=== PATIENT | female | born 1980 | race Two or more races ===

== ENCOUNTER 2025-06-15 03:15 | Emergency (ER) | payer MEDICAID, OTHER ==
[~2025-06-15] VITALS: Ht 160 cm; Wt 64.5 kg
[2025-06-15 04:49] VITALS: TEMP 98.1
--- NOTE | 2025-06-15 05:00 | DVH ---
EXAM: CT HEAD WITHOUT CONTRAST HISTORY: hi bp lue numb COMPARISON: None TECHNIQUE: Noncontrast axial CT images of the head were performed. Sagittal and coronal reformatted i mages were obtained. This CT exam was performed using 1 or more of the following dose reduction techn iques: Automated exposure control, adjustment of the mA and/or kv according to patient size, or the u se of iterative reconstruction techniques. Radiation Dose: CTDI volume is 52.78 mGy. Dose-length product is 933.05 mGy*cm FINDINGS: No intracranial hemorrhage, mass, midline shift, hydrocephalus, or evidence of acute large vessel inf arct. The sella is empty. There is frothy material in the left ethmoid air cells posteriorly. The catrachita ateral mastoid air cells and middle ear spaces are clear. No cranial fracture or scalp edema. There i s right frontal scalp scarring. IMPRESSION: 1. No acute intracranial process. 2. Empty sella incidentally noted. 3. Mild left ethmoid sinus disease.
[2025-06-15 05:04] LABS: Hematocrit 43.9 % (36.0-46.0); Hemoglobin 15.4 g/dL (12.2-16.2); Mean Corpuscular Hemoglobin 31.9 pg (28.0-32.0); Mean Corpuscular Volume 91.0 fL (80.0-100.0); Nucleated Red Blood Cells % 0.1 %
--- NOTE | 2025-06-15 05:14 | ED.PDOC ---
History of Present Illness HPI Comments 34-year-old female with a history of hypertension and thyroid disease brought in by private car complaining of elevated blood pressure, lightheadedness/dizziness and headache for the past 2-3 days. Patient admits to not regularly taking her enalapril and clonidine, however states she took them today. She denies any chest pain, shortness of breath, vision changes, syncope or focal weakness. Chief Complaint: High Blood Pressure Time Seen by MD: 05:13 Reviewed Notes: Nurses Notes Information Source: Patient Mode of Arrival: Ambulatory Severity: Moderate Timing: Days Past Medical History PAST MEDICAL HISTORY: HTN, Thyroid Surgical History: Denies all surgeries GAMING DEPARTMENT HEAD History: Denies all GAMING DEPARTMENT HEAD Hx Family History Family History: Reviewed,noncontributory to illness Social History Smoker: Non-Smoker Alcohol: Denies ETOH Use Drugs: Denies Drug Use Lives In: Home Constitutional: denies: chills, diaphoresis, fatigue, fever, malaise, sweats, weakness, others EENTM: denies: blurred vision, double vision, ear bleeding, ear discharge, ear drainage, ear pain, ear ringing, eye pain, eye redness, hearing loss, mouth pain, mouth swelling, nasal discharge, nose bleeding, nose congestion, nose pain, photophobia, tearing, throat pain, throat swelling, voice changes, others Respiratory: denies: cough, hemoptysis, orthopnea, SOB at rest, shortness of breath, SOB with excertion, stridor, wheezing, others Cardiovascular: denies: chest pain, dizzy spells, diaphoresis, Dyspnea on exertion, edema, irregular heart beat, left arm pain, lightheadedness, palpitations, PND, syncope, others Gastrointestinal: denies: abdomen distended, abdominal pain, blood streaked bowels, constipated, diarrhea, dysphagia, difficulty swallowing, hematemesis, melena, nausea, poor appetite, poor fluid intake, rectal bleeding, rectal pain, vomiting, others Genitourinary: denies: abnormal vagina bleeding, burning, dyspareunia, dysuria, flank pain, frequency, hematuria, incontinence, pain, , vagina dischar ge, urgency, others Neurological: reports: dizziness; denies: fainting, headache, left sided numbness, left sided weakness, numbness, paresthesia, pre-existing deficit, right sided numbness, right sided weakness, seizure, speech problems, tingling, tremors, weakness, others Musculoskeletal: denies: back pain, gout, joint pain, joint swelling, muscle pain, muscle stiffness, neck pain, others Integumetry: denies: bruises, change in color, change in hair/nails, dryness, laceration, lesions, lumps, rash, wounds, others Allergic/Immunocompromised: denies: Difficulty Healing, Frequent Infections, Hives, Itching, others Hematologic/Lymphatic: denies: anemia, blood clots, easy bleeding, easy bruising, swollen glands, others Endocrine: denies: excessive hunger, excessive sweating, excessive thirst, excessive urination, flushing, intolerance to cold, intolerance to heat, unexplained weight gain, unexplained weight loss, others Psychiatric: denies: anxiety, bipolar disorder, depression, hopeless, panic disorder, schizophrenia, sleepless, suicidal, others All Other Systems: Reviewed and Negative (Comprehensive systems review obtained and negative except for what is stated in the HPI.) Physical Exam General Appearance: No Apparent Distress HEENT: Other (Pupils and face symmetric. Moist mucous membranes.) Neck: Full Range of Motion, Normal Inspection Respiratory: Lungs Clear, No Accessory Muscle Use, No Respiratory Distress, Normal Breath Sounds Cardiovascular: No Edema, No JVD, Regular Rate/Rhythm Breast Exam: Deferred Gastrointestinal: Non Tender, Soft Genitalia: Deferred Pelvic: Deferred Rectal: Deferred Extremities: Normal inspection, Normal range of motion, Non-tender, No pedal edema Neurologic: Alert (Oriented x4), Normal Affect, Normal Mood, Other (Ambulatory) Cerebellar Function: NOT DONE Reflexes: NOT DONE Skin: Dry, Normal Color, Warm Lymphatic: NOT DONE Was a procedure done? Was a procedure done?: No Differential Dx Considerations may include: CVA, TIA, intracranial hemorrhage, Hypertensive urgency/emergency, CHF, renal failure, among others X-Ray, Labs, Meds, VS Vital Signs Date Time Temp Pulse Resp B/P (MAP) Pulse Ox O2 Delivery O2 Flow Rate FiO2 06/15/25 04:49 73 17 100 Room Air 06/15/25 04:49 98.1 73 17 179/112 (134) 100 98.1 06/15/25 04:47 179/112 06/15/25 03:16 98.0 101 20 156/101 96 98.0 Lab Test 06/15/25 04:59 Range/Units White Blood Count 5.3 4.4-10.8 10^3/uL Red Blood Count 4.82 4.0-5.20 10^6/uL Hemoglobin 15.4 12.2-16.2 g/dL Hematocrit 43.9 36.0-46.0 % Mean Corpuscular Volume 91.0 80.0-100.0 fL Mean Corpuscular Hemoglobin 31.9 28.0-32.0 pg Mean Corpuscular Hemoglobin Concent 35.0 32.0-36.0 g/dL Red Cell Distribution Width 12.9 11.8-14.3 % Platelet Count 259 140-450 10^3/uL Mean Platelet Volume 7.5 6.9-10.8 fL Neutrophils (%) (Auto) 72.6 37.0-80.0 % Lymphocytes (%) (Auto) 19.0 10.0-50.0 % Monocytes (%) (Auto) 5.9 0.0-12.0 % Eosinophils (%) (Auto) 1.7 0.0-7.0 % Basophils (%) (Auto) 0.8 0.0-2.0 % Neutrophils # (Auto) 3.8 1.6-8.6 10 ^3/uL Lymphocytes # (Auto) 1.0 0.4-5.4 10 ^3/uL Monocytes # (Auto) 0.3 0-1.3 10 ^3/uL Eosinophils # (Auto) 0.1 0-0.8 10 ^3/uL Basophils # (Auto) 0 0-0.2 10 ^3/uL Nucleated Red Blood Cells 0.1 % Sodium Level 142 136-145 mmol/L Potassium Level 4.3 3.5-5.1 mmol/L Chloride Level 107 98-107 mmol/L Carbon Dioxide Level 23 20-31 mmol/L Anion Gap 12 5-15 Blood Urea Nitrogen 11 9-23 mg/dL Creatinine 0.86 0.550-1.02 mg/dL Glomerular Filtration Rate Calc 85 >90 mL/min BUN/Creatinine Ratio 12.8 10.0-20.0 Serum Glucose 128 H 74-106 mg/dL Calcium Level 9.3 8.7-10.4 mg/dL Troponin I High Sensitivity < 3 L </=34 ng/L B-Type Natriuretic Peptide 17.16 0-100 pg/mL Current Medications Medications (Trade) Dose Ordered Sig/Juancarlos Route Start Time Stop Time Status Last Admin Hydralazine HCl (Apresoline Tablet) 10 mg ONCE ONCE PO 06/15/25 04:30 06/15/25 04:31 DC 06/15/25 04:47 EXAM: CT HEAD WITHOUT CONTRAST HISTORY: hi bp lue numb COMPARISON: None TECHNIQUE: Noncontrast axial CT images of the head were performed. Sagittal and coronal reformatted images were obtained. This CT exam was performed using 1 or more of the following dose reduction techniques: Automated exposure control, a djustment of the mA and/or kv according to patient size, or the use of iterative reconstruction techniques. Radiation Dose: CTDI volume is 52.78 mGy. Dose-length product is 933.05 mGy*cm FINDINGS: No intracranial hemorrhage, mass, midline shift, hydrocephalus, or evidence of acute large vessel infarct. The sella is empty. There is frothy material in the left ethmoid air cells posteriorly. The bilateral mastoid air cells and middle ear spaces are clear. No cranial fracture or scalp edema. There is right frontal scalp scarring. IMPRESSION: 1. No acute intracranial process. 2. Empty sella incidentally noted. 3. Mild left ethmoid sinus disease. : XY CHEST PORTABLE HISTORY: hi bp COMPARISON: None TECHNIQUE: Portable AP view of the chest was performed. FINDINGS: No pneumothorax, consolidative infiltrates, or pulmonary edema. The heart is not enlarged. IMPRESSION: No acute intrathoracic process. X-Ray, Labs, Meds, VS Comment 44-year-old female with a history of hypertension and thyroid disease complaining of elevated blood pressure, dizziness and headache Vitals remarkable for heart rate 101, blood pressure 179/112 Exam unremarkable Rhythm strip independently interpreted by me: Sinus tach, rate 101, no ectopy. CT head IMPRESSION: 1. No acute intracranial process. 2. Empty sella incidentally noted. 3. Mild left ethmoid sinus disease. Chest x-ray unremarkable CBC, basic metabolic panel, BNP and troponin unremarkable Patient treated with the following in the ED: Hydralazine 10 mg p.o. On re-evaluation, blood pressure is improving, vitals are stable. Patient is neurologically intact. Hospitalization was considered, however patient had rapid improvement of symptoms with treatment in the ED, and I no longer feel hospitalization is necessary. Patient now appears stable for discharge with close outpatient follow-up with her primary physician. Time of 1ST Reevaluation: 05:54 Reevaluation 1ST: Improved Patient Education/Counseling: Diagnosis, Treatment, Need For Follow Up Family Education/Counseling: No Family Present SEPSIS Sepsis Screen Date sepsis recognized/suspect: Jun 15, 2025 Time Sepsis recognized/suspect: 321 Recent Procedure: No On Antibiotic Therapy: No Respiratory Rate >20: No Heart Rate >90: No Temp<36 C (96.8 F) or >38.3 C: No SBP <90 or MAP <65 mmHG: No New Acute Mental Status Change: No Is the patient on CPAP, BIPAP,: No Physician Orders Chest Portable (06/15/25 04:18) Urinalysis (06/15/25 04:18) Electrocardigram (06/15/25 04:18) Head Without Contrast (06/15/25 04:18) Troponin-I Hs (06/15/25 05:18) Test, Urine (06/15/25 04:18) Vital Signs Date Time Temp Pulse Resp B/P (MAP) Pulse Ox O2 Delivery O2 Flow Rate FiO2 06/15/25 04:49 73 17 100 Room Air 06/15/25 04:49 98.1 73 17 179/112 (134) 100 98.1 06/15/25 04:47 179/112 06/15/25 03:16 98.0 101 20 156/101 96 98.0 Laboratory Tests Test 06/15/25 04:59 White Blood Count 5.3 10^3/uL (4.4-10.8) Medications Medications Dose Ordered Sig/Juancarlos Route Start Time Stop Time Status Last Admin Dose Admin Hydralazine HCl 10 mg ONCE ONCE PO 06/15/25 04:30 06/15/25 04:31 DC 06/15/25 04:47 Departure 1 Departure Time of Disposition: 05:54 Impression: Primary Impression: Accelerated hypertension Disposition: 01 HOME / SELF CARE / HOMELESS Condition: Stable Additional Instructions: Your blood tests, including screening test for heart attack and heart failure, were unremarkable. Your chest x-ray was unremarkable. Your head CT did not show any acute finding. Continue current medications as directed. Follow-up with your primary doctor in 1-2 days. Return to ER for persistent or worsening symptoms. [address] [address] Ph: [phone] DIAGNOSTIC IMAGING Diagnostic Imaging Report : [id number] Signed PATIENT: POPEYE BENTLEY ACCT: [id number] UNIT: [id number] : 1980 LOC: ER ROOM / BED: / AGE / SEX: 44 / F ADM STATUS: REG ER SERVICE [id number] ORDERING PHYSICIAN: JULIO C NGUYEN MD PROCEDURE(s): HWOCT - HEAD WITHOUT CONTRAST REASON: hi bp lue numb ORDER NUMBER(s): [id number], ACCESSION NUMBER(s): [id number] EXAM: CT HEAD WITHOUT CONTRAST HISTORY: hi bp lue numb COMPARISON: None TECHNIQUE: Noncontrast axial CT images of the head were performed. Sagittal and coronal reformatted images were obtained. This CT exam was performed using 1 or more of the following dose reduction techniques: Automated exposure control, adjustment of the mA and/or kv according to patient size, or the use of iterative reconstruction techniques. Radiation Dose: CTDI volume is 52.78 mGy. Dose-length product is 933.05 mGy*cm FINDINGS: No intracranial hemorrhage, mass, midline shift, hydrocephalus, or evidence of acute large vessel infarct. The sella is empty. There is frothy material in the left ethmoid air cells posteriorly. The bilateral mastoid air cells and middle ear spaces are clear. No cranial fracture or scalp edema. There is right frontal scalp scarring. IMPRESSION: 1. No acute intracranial process. 2. Empty sella incidentally noted. 3. Mild left ethmoid sinus disease. [address] [address] Ph: [phone] DIAGNOSTIC IMAGING Diagnostic Imaging Report : [id number] Signed PATIENT: POPEYE BENTLEY ACCT: [id number] UNIT: [id number] : 1980 LOC: ER ROOM / BED: / AGE / SEX: 44 / F ADM STATUS: REG ER SERVICE 0418 ORDERING PHYSICIAN: JULIO C NGUYEN MD PROCEDURE(s): CXRP - CHEST PORTABLE REASON: hi bp ORDER NUMBER(s): [id number], ACCESSION NUMBER(s): [id number] EXAM: XY CHEST PORTABLE HISTORY: hi bp COMPARISON: None TECHNIQUE: Portable AP view of the chest was performed. FINDINGS: No pneumothorax, consolidative infiltrates, or pulmonary edema. The heart is not enlarged. IMPRESSION: No acute intrathoracic process. Discharged With: Relative Critical Care Note Critical Care Time?: No Stability Stability form required: No Heart Score Heart Score: Heart Score Response (Comments) Value History N/A 0 EKG N/A 0 Age N/A 0 Risk Factors N/A 0 Troponin N/A 0 Total 0 I personally scribed for JULIO C NGUYEN MD (ANI) on 06/15/25 at 05:14. Electronically submitted by Steven Saenz ([facility] I personally scribed for JULIO C NGUYEN MD (ANI) on 06/15/25 at 05:40. Electronically submitted by Steven Saenz ([facility] I personally scribed for JULIO C NGUYEN MD (ANI) on 06/15/25 at 05:41. Electronically submitted by Steven Saenz ([facility] JULIO C NGUYEN MD Jun 15, 2025 05:14
[2025-06-15 05:15] LABS: Chloride 107 mmol/L (98-107); Potassium 4.3 mmol/L (3.5-5.1); Sodium 142 mmol/L (136-145)
[2025-06-15 05:16] LABS: Anion Gap 12 (5-15); Carbon Dioxide 23 mmol/L (20-31)
[2025-06-15 05:17] LABS: Calcium 9.3 mg/dL (8.7-10.4)
[2025-06-15 05:21] LABS: BUN/Creatinine Ratio 12.8 (10.0-20.0); Blood Urea Nitrogen 11 mg/dL (9-23)
[2025-06-15 05:24] LABS: Glucose 128 mg/dL (74-106)
--- NOTE | 2025-06-15 05:31 | DVH ---
EXAM: XY CHEST PORTABLE HISTORY: hi bp COMPARISON: None TECHNIQUE: Portable AP view of the chest was performed. FINDINGS: No pneumothorax, consolidative infiltrates, or pulmonary edema. The heart is not enlarged. IMPRESSION: No acute intrathoracic process.
[2025-06-15 06:06] VITALS: RESP 19; O2SAT 100
[2025-06-15 06:25] VITALS: BP 147/99; PULSE 77
== END 2025-06-15 06:34 | disposition home or self-care (01) ==
LOC: ER 03:15 → EDBD 03:15 → ER 06:34
DX: I10 Essential (primary) hypertension (principal); E03.9 Hypothyroidism, unspecified; Z79.899 Other long term (current) drug therapy
CPT/HCPCS: 36415; 70450; 71045; 80048; 83880; 84484; 85025